=== PATIENT | male | born 1955 | race Caucasian/White ===

== ENCOUNTER 2021-07-24 16:15 | Emergency (ER) | payer MEDICARE ==
[~2021-07-24] VITALS: Ht 180.3 cm; Wt 79.4 kg
[~2021-07-24 16:15] MED LIST: CARI350T PO; DIAZ10TA PO; ONDA4TAB11 PO; OXYC10TA59 PO; OXYC30TA2 PO
--- NOTE | 2021-07-24 16:45 | NUR ---
HEBER C/O L SHOULDER PAIN/LUE 11/12 "SOMEONE FELL ON ME". WILL CONTINUE TO MONITOR THE PATIENT.
--- NOTE | 2021-07-24 16:51 | NUR ---
CAITLYN RAMOS AT BEDSIDE
[2021-07-24] MEDS ORDERED: MORPHINE SULFATE INJ 2 MG/ML DISP.SYRIN IV ONE (17:00)
[2021-07-24] MEDS ORDERED: ONDANSETRON HCL/PF 4 MG/2 ML VIAL IV ONE (17:30)
[2021-07-24] MEDS ORDERED: ONDANSETRON 4 MG TAB.RAPDIS ONE (17:53)
[2021-07-24] MEDS ORDERED: MORPHINE SULFATE INJ 4 MG/ML DISP.SYRIN ONE ×2 (17:53→19:08)
--- NOTE | 2021-07-24 18:43 | NUR ---
waiting on [facility],Dr Luque said he will do it next
[2021-07-24] MEDS ORDERED: MORPHINE SULFATE INJ 2 MG/ML DISP.SYRIN IM ONE (19:00)
[2021-07-24] MEDS ORDERED: MORPHINE SULFATE INJ 10 MG/ML DISP.SYRIN IV ONE (19:30)
[2021-07-24 19:32] VITALS: BP 125/67
--- NOTE | 2021-07-24 19:32 | NUR ---
IV removed. Catheter intact and site benign. Pressure and 4x4 applied to site. No bleeding noted.Patient discharged to home in stable condition. Written and verbal after care instructions given. Patient verbalizes understanding of instruction.
== END 2021-07-24 19:32 | disposition home or self-care (01) ==
LOC: ER 16:15
DX: S42.212A Unspecified displaced fracture of surgical neck of left humerus, initial encounter for closed fracture (principal); G89.29 Other chronic pain; Z87.19 Personal history of other diseases of the digestive system; Z79.891 Long term (current) use of opiate analgesic; Z79.899 Other long term (current) drug therapy; X50.1XXA Overexertion from prolonged static or awkward postures, initial encounter; Y93.89 Activity, other specified; Y92.89 Other specified places as the place of occurrence of the external cause; Y99.8 Other external cause status
CPT/HCPCS: 73030; 73060; 96374; 96375; 96376; 99284; J2270 ×2; Q0162